=== PATIENT | male | born 1995 | race Caucasian/White ===

== ENCOUNTER 2017-01-18 20:47 | Inpatient (IN) | payer MEDICAID, OTHER ==
[~2017-01-18] VITALS: Ht 172.7 cm; Wt 104.0 kg
[~2017-01-18 20:47] MED LIST: ACET325T14 PO; CIPR500T87 PO; INSU100C5 SQ-INSULIN; INSU100V13 SC; LACT1CAP24 PO; METR500T PO; ONDA4TAB10 PO
[2017-01-18] MEDS ORDERED: ONDANSETRON 2MG/ML, 2ML ONE (21:28)
[2017-01-18] MEDS ORDERED: MORPHINE SULFATE 4 MG/ML, 1ML ONE (21:28)
[2017-01-18] MEDS ORDERED: SODIUM CHLORIDE 0.9% 1,000ML IVBOLUS ONE (21:30)
[2017-01-18] MEDS ORDERED: ONDANSETRON 2MG/ML, 2ML IVPush ONE (21:30)
[2017-01-18] MEDS ORDERED: SODIUM CHLORIDE FLUSH 10ML SYR IVF ONE (21:30)
[2017-01-18] MEDS ORDERED: MORPHINE SULFATE 4 MG/ML, 1ML IVPush PRN (21:30)
[2017-01-18 21:52] LABS: HEMATOCRIT 46.3 % (39.2-51.8); HEMOGLOBIN 15.8 g/dL (13.7-18.0); WHITE BLOOD COUNT 8.2 x10^3/uL (3.4-10)
[2017-01-18 22:02] LABS: BLOOD UREA NITROGEN 22 mg/dL (7-18)
[2017-01-18] MEDS ORDERED: DEXTROSE 50%, 50ML SYRINGE ONE (23:38)
[2017-01-18] MEDS ORDERED: VANCOMYCIN 2,000 MG in SODIUM CHLORIDE 0.9% 500 ML IV ONE (23:45)
[2017-01-19] MEDS ORDERED: PIPERACILLIN/TAZO/PMX 3.375GM 50 ML IVPB ONE
[2017-01-19] MEDS ORDERED: VANCOMYCIN PER PHARMACY IV ONE
[2017-01-19] MEDS ORDERED: VANCOMYCIN PER PHARMACY MC PRN
[2017-01-19] MEDS ORDERED: SODIUM CHLORIDE FLUSH 10ML SYR IVF ONE
[2017-01-19] MEDS ORDERED: DEXTROSE 50%, 50ML SYRINGE IVPush ONE
[2017-01-19] MEDS ORDERED: HYDROmorphone 2 MG/ML, 1ML IVPush PRN
[2017-01-19] MEDS ORDERED: DIPHENHYDRAMINE 25 MG CAPSULE PO PRN
[2017-01-19 01:00] VITALS: BP 157/88
[2017-01-19 01:01] VITALS: BP 157/88
[2017-01-19] MEDS ORDERED: PHARMACOKINETIC MONITORING MC PRN (01:30)
[2017-01-19] MEDS ORDERED: PHARMACOKINETIC CONSULTATION MC ONE (01:30)
[2017-01-19] MEDS ORDERED: DIPHENHYDRAMINE 50 MG/ML, 1ML IVPush ONE (02:00)
[2017-01-19] MEDS: PIPERACILLIN/TAZO/PMX 3.375GM 50 ML IV SCH ×4 (02:03→22:58)
[2017-01-19] MEDS ORDERED: BUPIVACAINE/PF 0.5% ONE (06:03)
[2017-01-19] MEDS ORDERED: FENTANYL PF 100 MCG/2ML ONE ×2 (06:33→07:16)
[2017-01-19] MEDS ORDERED: MIDAZOLAM 1 MG/ML, 2ML ONE (06:33)
[2017-01-19] MEDS ORDERED: PROPOFOL 10 MG/ML, 20ML ONE (06:55)
[2017-01-19] MEDS ORDERED: LIDOCAINE-MPF 2% ,5ML ONE (06:55)
[2017-01-19] MEDS ORDERED: LIDOCAINE GEL 2%, 5ML ONE (06:55)
[2017-01-19] MEDS ORDERED: SUCCINYLCHOLINE 20 MG/ML, 10ML ONE (06:56)
[2017-01-19] MEDS ORDERED: ROCURONIUM 10 MG/ML ONE (06:57)
[2017-01-19] MEDS ORDERED: ONDANSETRON 2MG/ML, 2ML ONE (06:58)
[2017-01-19] MEDS ORDERED: DEXAMETHASONE 4 MG/ML, 1ML ONE (06:58)
[2017-01-19] MEDS ORDERED: KETOROLAC 30 MG/1 ML IV PRN (07:00)
[2017-01-19] MEDS ORDERED: HYDROmorphone 1 MG/ML, 1ML IV PRN (07:00)
[2017-01-19] MEDS ORDERED: ONDANSETRON 2MG/ML, 2ML IVPush PRN ×2 (07:00)
[2017-01-19] MEDS ORDERED: ACETAMINOPHEN 325 MG TABLET PO PRN (07:00)
[2017-01-19] MEDS ORDERED: HYDROcodone/APAP 7.5-325MG/15ML UDC PO PRN (07:00)
[2017-01-19] MEDS ORDERED: OXYcodone 5 MG/5 ML ORAL.SOL UDC PO PRN (07:00)
[2017-01-19] MEDS ORDERED: FENTANYL PF 100 MCG/2ML IV PRN (07:00)
[2017-01-19] MEDS: INSULIN ASPART 100 UNITS/ML, PEN SQ-INSULIN SCH ×5 (07:25→22:59)
[2017-01-19 08:33] VITALS: BP 144/80
[2017-01-19] MEDS ORDERED: DEXTROSE 4 GM TAB.CHEW PO PRN (09:30)
[2017-01-19] MEDS ORDERED: GLUCAGON 1 MG IM PRN (09:30)
[2017-01-19] MEDS ORDERED: DEXTROSE 50%, 50ML SYRINGE IVPush PRN (09:30)
[2017-01-19 13:07] LABS: BLOOD UREA NITROGEN 27 mg/dL (7-18)
[2017-01-19 14:02] VITALS: BP 148/83
[2017-01-19] MEDS ORDERED: PHARMACY MAY ADJ FOR RENAL FX MC PRN ×2 (15:00)
[2017-01-19] MEDS: SODIUM CHLORIDE 0.9% 1,000 ML IV SCH (15:04)
[2017-01-19] MEDS ORDERED: INSULIN ASPART 100 UNITS/ML, PEN SQ-INSULIN SCH (16:00)
[2017-01-19] MEDS ORDERED: VANCOMYCIN 1,900 MG in SODIUM CHLORIDE 0.9% 250 ML IV SCH (18:00)
[2017-01-19] MEDS ORDERED: DIPHENHYDRAMINE 50 MG/ML, 1ML ONE (18:01)
[2017-01-19] MEDS: DIPHENHYDRAMINE 50 MG/ML, 1ML IVPush PRN (18:03)
[2017-01-19 19:53] VITALS: BP 153/91
[2017-01-19] MEDS: SODIUM CHLORIDE FLUSH 10ML SYR IVF SCH (21:00)
[2017-01-19] MEDS: INSULIN DETEMIR 100 UNITS/ML, PEN SQ-INSULIN SCH (22:58)
[2017-01-19 23:36] VITALS: BP 133/72
[2017-01-20] MEDS: SODIUM CHLORIDE 0.9% 1,000 ML IV SCH ×2 (02:59→17:02)
[2017-01-20 03:45] VITALS: BP 124/77
[2017-01-20] MEDS: PIPERACILLIN/TAZO/PMX 3.375GM 50 ML IV SCH ×4 (05:17→22:55)
[2017-01-20 06:00] LABS: BLOOD UREA NITROGEN 28 mg/dL (7-18)
[2017-01-20 06:53] VITALS: BP 134/82
[2017-01-20] MEDS: INSULIN ASPART 100 UNITS/ML, PEN SQ-INSULIN SCH ×4 (07:24→20:51)
[2017-01-20] MEDS: SODIUM CHLORIDE FLUSH 10ML SYR IVF SCH ×2 (09:00→20:51)
[2017-01-20] MEDS: HEPARIN 5,000 UNITS/ML, 1ML SQ SCH ×2 (11:15→20:40)
[2017-01-20] MEDS ORDERED: DIPHENHYDRAMINE 50 MG CAPSULE PO PRN (11:30)
[2017-01-20 13:29] VITALS: BP 131/79
[2017-01-20 19:33] VITALS: BP 163/98
[2017-01-20] MEDS: APIXABAN 5 MG TABLET PO SCH (20:43)
[2017-01-20] MEDS: INSULIN DETEMIR 100 UNITS/ML, PEN SQ-INSULIN SCH (20:51)
[2017-01-21 00:38] VITALS: BP 136/77
[2017-01-21] MEDS: PIPERACILLIN/TAZO/PMX 3.375GM 50 ML IV SCH ×4 (04:50→23:00)
[2017-01-21] MEDS: SODIUM CHLORIDE 0.9% 1,000 ML IV SCH ×3 (04:50→23:02)
[2017-01-21] MEDS: HEPARIN 5,000 UNITS/ML, 1ML SQ SCH ×2 (04:50→12:00)
[2017-01-21 06:00] LABS: HEMATOCRIT 37.2 % (39.2-51.8); HEMOGLOBIN 12.8 g/dL (13.7-18.0); WHITE BLOOD COUNT 7.3 x10^3/uL (3.4-10)
[2017-01-21 06:21] LABS: BLOOD UREA NITROGEN 22 mg/dL (7-18)
[2017-01-21 06:48] VITALS: BP 159/92
[2017-01-21] MEDS: APIXABAN 5 MG TABLET PO SCH ×2 (08:14→20:49)
[2017-01-21] MEDS: VANCOMYCIN 1,900 MG in SODIUM CHLORIDE 0.9% 250 ML IV SCH (08:14)
[2017-01-21] MEDS: INSULIN ASPART 100 UNITS/ML, PEN SQ-INSULIN SCH ×4 (08:24→21:18)
[2017-01-21] MEDS: SODIUM CHLORIDE FLUSH 10ML SYR IVF SCH ×2 (08:26→20:49)
[2017-01-21 13:10] VITALS: BP 164/99
[2017-01-21 13:46] VITALS: BP 178/112
[2017-01-21] MEDS: AMLODIPINE 2.5 MG TABLET PO SCH (16:41)
[2017-01-21 20:10] VITALS: BP 178/110
[2017-01-21] MEDS: INSULIN DETEMIR 100 UNITS/ML, PEN SQ-INSULIN SCH (21:18)
[2017-01-21] MEDS ORDERED: INSULIN ASPART 100 UNITS/ML, PEN SQ-INSULIN ONE (22:30)
[2017-01-21] MEDS: hydrALAzine 20 MG/ML, 1ML IV PRN (23:00)
[2017-01-22 01:55] VITALS: BP 143/89
[2017-01-22] MEDS: VANCOMYCIN 1,900 MG in SODIUM CHLORIDE 0.9% 250 ML IV SCH ×2 (02:41→21:52)
[2017-01-22] MEDS: DIPHENHYDRAMINE 50 MG/ML, 1ML IVPush PRN ×2 (02:50→21:52)
[2017-01-22] MEDS: PIPERACILLIN/TAZO/PMX 3.375GM 50 ML IV SCH ×3 (05:11→17:40)
[2017-01-22 06:21] LABS: BLOOD UREA NITROGEN 14 mg/dL (7-18)
[2017-01-22] MEDS: INSULIN ASPART 100 UNITS/ML, PEN SQ-INSULIN SCH ×4 (07:00→20:24)
[2017-01-22 07:46] VITALS: BP 138/82
[2017-01-22] MEDS: AMLODIPINE 2.5 MG TABLET PO SCH (08:24)
[2017-01-22] MEDS: APIXABAN 5 MG TABLET PO SCH ×2 (08:24→20:15)
[2017-01-22] MEDS: SODIUM CHLORIDE FLUSH 10ML SYR IVF SCH ×2 (08:25→20:15)
[2017-01-22] MEDS: SODIUM CHLORIDE 0.9% 1,000 ML IV SCH ×2 (11:18→21:52)
[2017-01-22 13:57] VITALS: BP 161/102
[2017-01-22] MEDS: INSULIN DETEMIR 100 UNITS/ML, PEN SQ-INSULIN SCH (20:25)
[2017-01-22 20:31] VITALS: BP 175/118
[2017-01-22] MEDS: hydrALAzine 20 MG/ML, 1ML IV PRN (21:33)
[2017-01-23] MEDS: PIPERACILLIN/TAZO/PMX 3.375GM 50 ML IV SCH ×3 (01:09→11:55)
[2017-01-23 02:49] VITALS: BP 118/73
[2017-01-23 05:54] LABS: BLOOD UREA NITROGEN 20 mg/dL (7-18); HEMATOCRIT 42.8 % (39.2-51.8); HEMOGLOBIN 14.6 g/dL (13.7-18.0); WHITE BLOOD COUNT 6.2 x10^3/uL (3.4-10)
[2017-01-23] MEDS: SODIUM CHLORIDE 0.9% 1,000 ML IV SCH ×2 (06:22→15:00)
[2017-01-23] MEDS: INSULIN ASPART 100 UNITS/ML, PEN SQ-INSULIN SCH ×3 (06:27→16:29)
[2017-01-23 08:00] VITALS: BP 152/96
[2017-01-23] MEDS: INSULIN DETEMIR 100 UNITS/ML, PEN SQ-INSULIN SCH (08:37)
[2017-01-23] MEDS: APIXABAN 5 MG TABLET PO SCH (08:37)
[2017-01-23] MEDS: AMLODIPINE 2.5 MG TABLET PO SCH (08:37)
[2017-01-23] MEDS: SODIUM CHLORIDE FLUSH 10ML SYR IVF SCH (08:38)
[2017-01-23 14:12] VITALS: BP 161/91
[2017-01-23] MEDS ORDERED: APIX5TAB PO (15:57)
[2017-01-23] MEDS ORDERED: DOXY100T10 PO (15:57)
[2017-01-23] MEDS ORDERED: AMLO2.5T PO (15:57)
[2017-01-23] MEDS ORDERED: VANCOMYCIN 1,900 MG in SODIUM CHLORIDE 0.9% 250 ML IV SCH (16:00)
== END 2017-01-23 17:36 | disposition home or self-care (01) | DRG 344 ==
LOC: ED 21:26 → EDIP 23:36 → 4NOR 01-19 00:30
PROVIDERS: ADMIT Hospitalist; ATTEND Hospitalist
PROC: 0D9P0ZX Drainage of Rectum, Open Approach, Diagnostic (ICD-10-PCS; principal; 2017-01-19 06:00)
DX: K61.2 Anorectal abscess (principal); N17.0 Acute kidney failure with tubular necrosis; I82.621 Acute embolism and thrombosis of deep veins of right upper extremity; E10.65 Type 1 diabetes mellitus with hyperglycemia; I47.1 Supraventricular tachycardia; I82.619 Acute embolism and thrombosis of superficial veins of unspecified upper extremity; I10 Essential (primary) hypertension; Z79.4 Long term (current) use of insulin
CPT/HCPCS: 36415; 72193; 80048; 80202; 81001; 82040; 82947; 82962; 85025; 87040; 87070; 87075; 87077; 87147; 87186; 87205; 96361; 96374; 96375; J1100; J1644; J2250; J2405; J2543; J2704; J3010; J3370; J3490; J0330; J0360; J1200; J1815; J7030; J7040; J7050

== ENCOUNTER 2017-04-26 05:34 | Emergency (ER) | payer MEDICAID ==
[~2017-04-26] VITALS: Ht 170.2 cm; Wt 103.4 kg
[~2017-04-26 05:34] MED LIST changes: +AMLO2.5T PO; +APIX5TAB PO; +DOXY100T10 PO
[2017-04-26 05:35] VITALS: BP 173/131
[2017-04-26] MEDS ORDERED: ONDANSETRON ODT 4 MG ONE (05:42)
[2017-04-26] MEDS ORDERED: ONDANSETRON ODT 4 MG PO ONE (06:00)
[2017-04-26] MEDS ORDERED: DEXAMETHASONE 4 MG/ML, 1ML PO ONE (06:00)
[2017-04-26] MEDS ORDERED: DEXAMETHASONE 4 MG TABLET ONE (06:15)
[2017-04-26] MEDS ORDERED: DEXAMETHASONE 4 MG/ML, 1ML ONE (06:17)
[2017-04-26] MEDS ORDERED: [UNRECOGNIZED DRUG - OTHER] SC (06:23)
== END 2017-04-26 07:36 | disposition home or self-care (01) ==
LOC: ED 07:30
DX: J02.8 Acute pharyngitis due to other specified organisms (principal); E11.65 Type 2 diabetes mellitus with hyperglycemia; I10 Essential (primary) hypertension; Z79.4 Long term (current) use of insulin
CPT/HCPCS: 87081; 87880; 99284; J1100; Q0162

== ENCOUNTER 2017-10-31 19:25 | Emergency (ER) | payer MEDICAID ==
[~2017-10-31] VITALS: Ht 172.7 cm; Wt 103.0 kg
[~2017-10-31 19:25] MED LIST changes: +[UNRECOGNIZED DRUG - OTHER] SC
[2017-10-31 19:34] VITALS: BP 165/107
[2017-10-31] MEDS ORDERED: LIDOCAINE 2%, 20ML SQ ONE (20:00)
[2017-10-31] MEDS ORDERED: CEFAZOLIN 1,000 MG IM ONE (20:00)
[2017-10-31] MEDS ORDERED: CEFAZOLIN 1,000 MG ONE (20:23)
[2017-10-31] MEDS ORDERED: LIDOCAINE-MPF 2% ,5ML ONE ×2 (20:23→22:23)
[2017-10-31] MEDS ORDERED: BACITRACIN ZINC OINT 500U/GM, 0.9 GM ONE ×2 (21:16→23:13)
== END 2017-10-31 23:31 | disposition home or self-care (01) ==
LOC: ED 23:05
DX: L60.0 Ingrowing nail (principal); I10 Essential (primary) hypertension; E11.65 Type 2 diabetes mellitus with hyperglycemia
CPT/HCPCS: 11740; 99283; J0690; J3490